=== PATIENT | female | born 1940 | race Two or more races ===

== ENCOUNTER 2019-01-27 05:15 | Day surgery (SDC) | payer OTHER | END 2019-01-27 11:05 | disposition home or self-care (01) | LOC: AMB-ENDOS 05:15 | DX: K57.30 Diverticulosis of large intestine without perforation or abscess without bleeding (principal); K64.1 Second degree hemorrhoids; Z12.11 Encounter for screening for malignant neoplasm of colon ==

== ENCOUNTER 2019-05-01 06:48 | Outpatient (CLI) | payer OTHER | END 2019-05-01 07:09 | disposition home or self-care (01) | LOC: LAB 06:48 | DX: I10 Essential (primary) hypertension (principal); M81.0 Age-related osteoporosis without current pathological fracture; E55.9 Vitamin D deficiency, unspecified ==

== ENCOUNTER 2020-03-19 07:11 | Outpatient (CLI) | payer OTHER | END 2020-03-19 07:23 | disposition home or self-care (01) | LOC: MRI 07:11 | DX: D25.1 Intramural leiomyoma of uterus (principal); N95.0 Postmenopausal bleeding | CPT/HCPCS: 72197; 74183; A9575 ==